=== PATIENT | male | born 1970 | race Caucasian/White ===

== ENCOUNTER 2017-12-16 13:40 | Emergency (ER) | payer OTHER, SELFPAY ==
--- OUTSIDE RECORDS SUMMARY | 2017-12-16 13:43 | XMS REPORT | Summary of Care ---
:1970 Author Organization [facility] Address [address] [address]- Encounter HQ Cresencio_raj(FIN) [id number] Date(s): 07/17/17 - 07/17/[address] [address]- [phone] Discharge Disposition: Home or Self Care Attending Physician: Jakob Rincon DO Vital Signs Most recent to oldest [Reference Range]: 1 Height 185.42 cm (07/17/17 2:37 PM) Temperature Oral [96.4-99.1 DegF] 97.1 DegF (07/17/17 2:37 PM) Blood Pressure [90-140/60-90 mmHg] 142/86 mmHg *HI* (07/17/17 2:37 PM) Respiratory Rate [14-20 BRMIN] 16 BRMIN (07/17/17 2:37 PM) Peripheral Pulse Rate [60-100 bpm] 73 bpm (07/17/17 2:37 PM) Weight 114.545 kg (07/17/17 2:37 PM) Body Mass Index 33.32 m2 (07/17/17 2:37 PM) Problem List Condition Effective Dates Status Health Status Informant Hypertension(Confirmed) Active Obesity(Confirmed) Active Allergies, Adverse Reactions, Alerts Substance Reaction Severity Status NKDA Active Medications hydrochlorothiazide-losartan 12.5 mg-50 mg oral tablet 1 tab, PO, Daily, # 90 tab, 1 Refill(s), Pharmacy: [id number] Start Date: 07/17/17 Status: Orderedsildenafil 50 mg oral tablet 50 mg=1 tab, PO, Daily, PRN for erectile dysfunction, # 10 tab, 5 Refill(s), Pharmacy: [id number] Start Date: 07/22/17 Status: Ordered Results No data available for this section Immunizations No data available for this section Procedures Procedure Date Related Diagnosis Body Site Status Tonsillectomy and adenoidectomy Completed Social History Social History Type Response Substance Abuse Use: Past. Exercise Exercise frequency: 5-6 times/week. Exercise type: Weight lifting.1 Alcohol Current, Frequency: 3-5 times per week. Previous treatment: None. Smoking Status Never smoker; Type: Chewing tobacco; Ready to change: No; Concerns about tobacco use in household: No; Exposure to Tobacco Smoke None; Cigarette Smoking Last 365 Days No; Reg Smoking Cessation Counseling Yes entered on: 10/03/17 1baseball,golf, cardio, bike Assessment and Plan No data available for this section
--- OUTSIDE RECORDS SUMMARY | 2017-12-16 13:43 | XMS REPORT | Summary of Care ---
:1970 Author Organization [facility] [address] [address]- Encounter HQ Encntr_alias(FIN) [id number] Date(s): 06/05/17 - 06/05/[address] [address]- [phone] Attending Physician: Jakob Rincon DO Vital Signs No data available for this section Problem List Condition Effective Dates Status Health Status Informant Hypertension(Confirmed) Active Obesity(Confirmed) Active Allergies, Adverse Reactions, Alerts Substance Reaction Severity Status NKDA Active Medications No data available for this section Results No data available for this section Immunizations No data available for this section Procedures Procedure Date Related Diagnosis Body Site Status Tonsillectomy and adenoidectomy Completed Social History Social History Type Response Substance Abuse Use: Past. Exercise Exercise frequency: 5-6 times/week. Exercise type: Weight lifting.1 Alcohol Current, Frequency: 3-5 times per week. Previous treatment: None. Smoking Status Never smoker; Ready to change: No; Concerns about tobacco use in household: No; Exposure to Tobacco Smoke None; Cigarette Smoking Last 365 Days No; Reg Smoking Cessation Counseling No entered on: 03/06/17 1baseball,golf, cardio, bike Assessment and Plan No data available for this section
--- OUTSIDE RECORDS SUMMARY | 2017-12-16 13:43 | XMS REPORT | Summary of Care ---
:1970 Author Organization [facility] Address [address] [address]- Encounter HQ Encntr_alias(FIN) [id number] Date(s): 08/07/17 - 08/08/17 [place] [id number] [address] [address]- [phone] Vital Signs No data available for this [...]
--- OUTSIDE RECORDS SUMMARY | 2017-12-16 13:43 | XMS REPORT | Summary of Care ---
:1970 Author Organization [facility] Address [address] [address]- Encounter HQ Encntr_alias(FIN) [id number] Date(s): 10/08/17 - 10/09/17 [place] [id number] [address] [address]- [phone] Vital Signs No data available for this [...]
--- OUTSIDE RECORDS SUMMARY | 2017-12-16 13:43 | XMS REPORT | Summary of Care ---
:1970 Author Organization [facility] Address [address] [address]- Encounter HQ Encntr_alias(FIN) [id number] Date(s): 10/14/17 - 10/15/[address] [address]- [phone] Vital Signs No data available for this [...]
--- OUTSIDE RECORDS SUMMARY | 2017-12-16 13:43 | XMS REPORT | Summary of Care ---
:1970 Author Organization [facility] Address [address] [place] [address]- Encounter HQ Jadntr_raj(FIN) [id number] Date(s): 10/03/17 - 10/03/[address] [address]- [phone] Discharge Disposition: Home or Self Care Attending Physician: Jakob Rincon DO Vital Signs Most recent to oldest [Reference Range]: 1 Height 185.42 cm (10/03/17 3:21 PM) Temperature Oral [96.4-99.1 DegF] 98.0 DegF (10/03/17 3:21 PM) Blood Pressure [90-140/60-90 mmHg] 165/86 mmHg *HI* (10/03/17 3:21 PM) Respiratory Rate [14-20 BRMIN] 18 BRMIN (10/03/17 3:21 PM) Peripheral Pulse Rate [60-100 bpm] 64 bpm (10/03/17 3:21 PM) Weight 111.818 kg (10/03/17 3:21 PM) Body Mass Index 32.52 m2 (10/03/17 3:21 PM) Problem List Condition Effective Dates Status Health Status Informant Hypertension(Confirmed) Active Obesity(Confirmed) Active Allergies, Adverse Reactions, Alerts Substance Reaction Severity Status NKDA Active Medications ipratropium nasal 0.06% spray 2 spray, Each Affected Nostril, TID, X 7 day, # 15 mL, 0 Refill(s), Pharmacy: [id number] Start Date: 10/03/17 Stop Date: 10/10/17 Status: Ordered Results No data available for [...]
--- OUTSIDE RECORDS SUMMARY | 2017-12-16 13:43 | XMS REPORT | Summary of Care ---
:1970 Author Organization [facility] [place] Address [address] [place] [address]- Encounter HQ Encntr_alias(FIN) [id number] Date(s): 03/12/17 - 03/12/17 [facility] [address] [place] [address]- [phone] Discharge Disposition: Home or Self Care Attending Physician: Danie Reinoso MD Vital Signs No data available for this section Problem List Condition Effective Dates Status Health Status Informant Hypertension(Confirmed) Active Obesity(Confirmed) Active Allergies, Adverse Reactions, Alerts Substance Reaction Severity Status NKDA Active Medications No data available for this section Results No data available for this section Immunizations No data available for this section Procedures Procedure Date Related Diagnosis Body Site Tonsillectomy and adenoidectomy Social History Social History Type Response Substance Abuse Use: Past. Exercise Exercise frequency: 5-6 times/week. Exercise type: Weight lifting.1 Alcohol Current, Frequency: 3-5 times per week. Previous treatment: None. Smoking Status Never smoker; Ready to change: No; Concerns about tobacco use in household: No; Exposure to Tobacco Smoke None; Cigarette Smoking Last 365 Days No; Reg Smoking Cessation Counseling No 1baseball,golf, cardio, bike Assessment and Plan No data available for this section
--- OUTSIDE RECORDS SUMMARY | 2017-12-16 13:43 | XMS REPORT | Summary of Care ---
:1970 Author Organization [facility] Address [address] [place] [address]- Encounter HQ Jadntr_raj(FIN) [id number] Date(s): 10/03/17 - 10/03/[address] [address]- [phone] Discharge Disposition: Home or Self Care Attending [...] day, # 15 mL, 0 Refill(s), Pharmacy: [id number] Start Date: 10/03/17 Stop Date: 10/10/17 Status: [...]
--- OUTSIDE RECORDS SUMMARY | 2017-12-16 13:43 | XMS REPORT | Continuity of Care Document ---
:1970 Author Organization Interface Problems Problem Status Onset Classification Date Comments Source Date Reported SHOULDER PAIN Active [facility] 7 [place] M25.522 - PAIN Active [facility] IN LEFT ELBOW 7 [place] R07.9 - "CHEST Active [facility], 7 [facility] UNSPECIFIED" R07.9 - "CHEST Active [facility], [facility] [place] UNSPECIFIED" R10.30 Hypertension Active Problem 10/19/2017 [facility] [place] Obesity Active Problem 10/19/2017 [facility] [place] Hypertension Active Problem 11/14/2017 [facility] [place] Obesity Active Problem 11/14/2017 [facility] [place] Hypertension Active Problem 04/27/2017 [facility] [place] [place] Obesity Active Problem 04/27/2017 [facility] [place] [place] Medications Medication Details Route Status Patient Ordering Order Source Instructions Provider Date Ipratropium [place] 2 spray, Active 0.042 MG/ACTUAT Each 018 Medical Metered Dose Nasal Affected Group [facility] [place] Nostril, TID, X 7 day, # 15 mL, 0 Refill(s), [facility] sildenafil 50 MG Oral 50 mg=1 Active Tablet tab, PO, 018 Medical Daily, PRN Group for erectile dysfunctio n, # 10 tab, 5 Refill(s), Pharmacy: [facility] Hydrochlorothiazide 1 tab, PO, Active 12.5 MG / Losartan Daily, # 018 Medical Potassium 50 MG Oral 90 tab, 1 Group Tablet Refill(s), Pharmacy: [facility] Allergies, Adverse Reactions, Alerts Substance Category Reaction Severity Reaction Status Date Comments Source type Reported NKDA Assertion Drug Active allergy Medical Group Immunizations Immunization Date Given Site Status Last Updated Comments Source Results Order Results Value Reference Date Interpretation Comments Source Name Range Elbow 3 Elbow 3 Clinical Indication: - M25.522 Pain in left elbow; - [facility] views views DX - [facility] DX Comparison: None Read by: Arie [place] MD Dictated Date/time: 03/12/17 12:19 FINDINGS: Electronically Signed by: Arie [place] MD 03/12/17 12:19 FINAL REPORT AP,, and lateral radiographs of the left elbow were obtained. No acute fracture or dislocation is identified. Normal configuration of the anterior fat pad is noted. No posterior fat pad is identified. IMPRESSION: 1. No fracture or dislocation of the left elbow. SL: [id number] Chest 2 Chest 2 EXAM: Chest 2 views DX 01/24 - [facility] views views - [facility] DX HISTORY: chest pain - pain COMPARISON: None Read by: Ronnie Patel MD Dictated Date/time: 01/24/17 10:37 Electronically Signed by: Ronnie Patel MD 01/24/17 10:37 FINAL REPORT The heart size is normal and the lungs are clear. There is no pleural effusion or pneumothorax. No acute skeletal abnormality. IMPRESSION: No acute abnormality. Vital Signs Vital Sign Value Date Comments Source Weight 111.818 10/03/2017 Medical Group BMI Calculated 32.52 10/03/2017 [facility] Systolic (mm Hg) 165 10/03/2017 [facility] Diastolic (mm Hg) 86 10/03/2017 [facility] Respitory Rate 18 10/03/2017 [facility] Temperature Oral (F) 98.0 F 10/03/2017 [facility] Heart Rate 64 10/03/2017 Medical Group Height 185.42 cm 10/03/2017 Medical Group Weight 114.545 08/06/2017 [facility] Group BMI Calculated 33.32 08/06/2017 Medical Group Height 185.42 cm 08/06/2017 [facility] Systolic (mm Hg) 157 08/06/2017 [facility] Diastolic (mm Hg) 97 08/06/2017 Medical Group BMI Calculated 33.32 07/17/2017 Medical Group Weight 114.545 07/17/2017 Medical Group Height 185.42 cm 07/17/2017 [facility] Group Temperature Oral (F) 97.1 F 07/17/2017 Medical Group Heart Rate 73 07/17/2017 Medical Group Respitory Rate 16 07/17/2017 [facility] Systolic (mm Hg) 142 07/17/2017 [facility] Diastolic (mm Hg) 86 07/17/2017 Medical Group Encounters Location Location Encounter Encounter Reason Attending ADM DC Status Source Details Type Number For Provider Date Date Visit Outpatient [id number] KELLY HAND 10/24 [facility] [place] [facility] [id number] KELLY HAND 01/24 [facility] Outpt Diag [id number] Kelly Hand 01/24 01/25 [facility]2016 [facility] [id number] KELLY HAND 03/06 [facility] Outpt Diag [id number] [facility] 03/12 03/13 OP Outpatient Services [facility] [place] [facility] [id number] [place] 03/21 [facility] [place] [facility] [place] [facility] [id number] [facility] 03/26 04/25 [facility] [place] [facility] [id number] KELLY HAND 04/22 [facility] [id number] Kelly Hand 04/22 04/22 Primary Pre-Reg /2016 [facility] Outpatient [id number] ED[place] 04/25 [place] [facility] [id number] Ed04/25 [facility] Pre-Reg [place] /2016 Neuro y [place] [facility] [id number] KELLY HAND 06/05 [facility] [id number] Kelly Hand 06/05 06/05 Primary Pre-Reg /2017 [facility] Outpatient [id number] KELLY HAND 07/17 [facility] [id number] Kelly Hand 07/17 07/18 Primary /2017 [facility] Group [facility] Outpatient [id number] TITO AMADO 08/06 [facility] [id number] Tito Amado 08/06 08/07 Urology /2017 [facility] [place] [facility] MG Phone [id number] 08/07 08/09 Primary Message /2017 [facility] Care [facility] Outpatient [id number] KELLY HAND 10/03 Active [facility] /2017 [place] [facility] [id number] Kelly Hand 10/03 10/04 [facility] /[facility] [id number] 10/08 10/10 Primary Message /2017 [facility] [id number] 10/14 10/16 Primary Message /2017 Medical Care [facility] Outpatient [id number] [place] 10/16 [facility] /2017 [place] [facility] [id number] [facility] 10/16 10/16 [facility] Pre-Reg Kemar /2017 Neuro [place] Procedures Procedure Code Date Perfomer Comments Source Tonsillectomy and 10884306 [facility] [place] [facility] Tonsillectomy and [id number] Medical adenoidectomy Group Tonsillectomy and [id number] [facility] adenoidectomy [facility] Tonsillectomy and [id number] [facility] [place] adenoidectomy
--- OUTSIDE RECORDS SUMMARY | 2017-12-16 13:43 | XMS REPORT | Summary of Care ---
:1970 Author Organization [facility] [address] [address]- Encounter HQ Encntr_alias(FIN) [id number] Date(s): 06/05/17 - 06/05/[address] [address]- [phone] Attending Physician: Jakob Rincon DO Vital Signs [...] Reg Smoking Cessation Counseling Yes entered on: 08/06/17 1baseball,golf, cardio, bike Assessment and Plan No data available for this section
--- OUTSIDE RECORDS SUMMARY | 2017-12-16 13:43 | XMS REPORT | Summary of Care ---
:1970 Author Organization [facility] [place] Address [address] [place] [address]- Encounter HQ Encntr_alimichael(FIN) [id number] Date(s): 04/25/17 - 04/25/17 [facility] [place] [address] [place] [address] [phone] Attending Physician: Shree Nash DO Referring Physician: Danie Reinoso MD Vital Signs No [...]
--- OUTSIDE RECORDS SUMMARY | 2017-12-16 13:43 | XMS REPORT | Summary of Care ---
:1970 Author Organization [facility] [place] Address [address] [place] [address]- Encounter HQ Jadntr_raj(FIN) [id number] Date(s): 03/26/17 - 04/24/17 [facility] [place] [address] [place] [phone] Discharge Disposition: Home or Self Care Attending [...]
--- OUTSIDE RECORDS SUMMARY | 2017-12-16 13:43 | XMS REPORT | Summary of Care ---
:1970 Author Organization [facility] [address] [address]- Encounter HQ Encntr_raj(FIN) [id number] Date(s): 04/22/17 - 04/22/[address] [address]- [phone] Attending Physician: Jakob Rincon DO Vital Signs [...]
--- OUTSIDE RECORDS SUMMARY | 2017-12-16 13:43 | XMS REPORT | Summary of Care ---
:1970 Author Organization [facility] Address [address] [address]- Encounter HQ Encntr_alias(FIN) [id number] Date(s): 01/24/17 - 01/24/17 [facility] [address] [id number]- [phone] Discharge Disposition: Home or Self Care Attending [...]
--- OUTSIDE RECORDS SUMMARY | 2017-12-16 13:43 | XMS REPORT | Summary of Care ---
:1970 Author Organization [facility] [place] Address [address] [place] [place] [address]- Encounter HQ Cresencio_raj(STEVEN) [id number] Date(s): 08/06/17 - 08/06/17 [facility] [place] [address] [place] [address] [phone] Discharge Disposition: Home or Self Care Attending Physician: Tito Amado MD Referring Physician: Tito Amado MD Vital Signs Most recent to oldest [Reference Range]: 1 Height 185.42 cm (08/06/17 2:32 PM) Blood Pressure [90-140/60-90 mmHg] 157/97 mmHg *HI* (08/06/17 2:32 PM) Weight 114.545 kg (08/06/17 2:32 PM) Body Mass Index 33.32 m2 (08/06/17 2:32 PM) Problem List Condition Effective Dates Status Health Status Informant Hypertension(Confirmed) Active Obesity(Confirmed) Active Allergies, Adverse Reactions, Alerts Substance Reaction Severity Status NKDA Active Medications No Known Medications Results No data available for this section [...]
[2017-12-16] MEDS ORDERED: ACETAMINOPHEN 500 MG TAB ONE (14:46)
[2017-12-16] MEDS ORDERED: AZITHROMYCIN 500 MG/250 ML BAG ONE (14:47)
[2017-12-16] MEDS ORDERED: NA CHLORIDE 0.9% 1,000 ML ONE ×2 (14:47→16:38)
[2017-12-16] MEDS ORDERED: CEFTRIAXONE/SWI 1gm 1 GM/10 ML SYR ONE ×2 (14:47→15:13)
[2017-12-16 15:11] LABS: Absolute Lymphocytes (CBC) 1.2 K/uL (0.7-4.9); Absolute Monocytes 0.6 K/uL (0.1-1.3); Absolute Neutrophil 3.1 K/uL (1.8-8.0); Basophils % 0.8 % (0-1.3); Eosinophils % 0.6 % (0-4.4); Hematocrit 48.2 % (39.6-49.0); Lymphocytes % 23.8 % (15.3-44.8); MCH 31.5 pg (27.0-35.0); MPV 8.4 fL (7.6-11.3); Monocytes % 12.1 % (3.3-12.3); RBC Red Blood Cell Count 5.23 M/uL (4.33-5.43)
--- NOTE | 2017-12-16 15:25 | EKG ---
Test Date: 2017-12-16 Test Time: 15:02:59 Edge Inker: ALYCIA MEASUREMENT RESULTS: Intervals: Rate: 102 DC: 130 QRSD: 76 QT: 336 QTc: 437 [place]: P: 42 DC: 130 QRS: 0 T: 20 INTERPRETIVE STATEMENTS: Sinus tachycardia Otherwise normal ECG No previous ECG available for comparison Electronically Signed On 12-16-17 15:24:48 CDT by Nael Wu
[2017-12-16 15:30] LABS: Protime INR 1.21
[2017-12-16 15:33] LABS: Bilirubin Direct 0.2 mg/dL (0-0.2); Bilirubin Total 0.7 mg/dL (0.2-1.0); CKMB Creatine Kinase MB 4.5 ng/mL (0.3-3.6); Magnesium 2.5 mg/dL (1.8-2.4); Protein, Total 8.4 g/dL (6.4-8.2)
--- NOTE | 2017-12-16 16:04 | RAD REPORT ---
EXAM DESCRIPTION: CT - Chest For Pe Angio - 12/16/2017 3:55 pm CLINICAL HISTORY: Cough and congestion. Shortness of breath COMPARISON: December 16 chest x-ray TECHNIQUE: Dynamically enhanced axial 3 mm thick images of the chest were obtained during administra tion of <100> mL Isovue 370 IV contrast. Coronal and oblique reconstruction images were generated and reviewed. Exam utilizes a protocol for optimal evaluation of pulmonary arterial tree. Maximum intensity projections 3D imaging was utilized All CT scans are performed using dose optimization technique as appropriate and may include automated exposure control or mA/KV adjustment according to patient size. FINDINGS: The opacification of the pulmonary arteries is suboptimal. A gross central pulmonary embol us is not seen. A thoracic aortic aneurysm is not noted. A pleural effusion is not seen. A pericardial effusion is not seen. Moderate alveolar opacities are present within the left upper lobe/ lingula. Fatty infiltration liver is present. IMPRESSION: Suboptimal opacification of the pulmonary arteries without gross visualization of a cent ral pulmonary embolus Moderate left pneumonia
--- NOTE | 2017-12-16 16:11 | EDPHYS ---
Physician Documentation [facility] Name: Alessio Craig Age: 47 yrs Sex: Male : 1970 Arrival Date: 12/16/2017 Time: 13:40 Bed 7 Private MD: Out, [facility] ED Physician Wagner Mcnamara HPI: 12/16 15:03 This 47 yrs old Male presents to ER via Ambulatory with complaints of sent by naseem Pascal. 15:03 The patient has shortness of breath at rest, with light activity. Onset: The naseem symptoms/episode began/occurred 3 day(s) ago. Duration: The symptoms are continuous, and are steadily getting worse. The patient's shortness of breath has no apparent modifying factors. The patient or guardian reports cough, difficulty breathing, flu symptoms. Modifying factors: The symptoms are alleviated by nothing. the symptoms are aggravated by nothing. Associated signs and symptoms: Pertinent positives: productive cough, fever. Severity of symptoms: At their worst the symptoms were moderate in the emergency department the symptoms are unchanged. Historical: - Allergies: 14:09 No Known Allergies; ss - Home Meds: 14:09 z-latrell [Active]; ss - PMHx: 14:09 None; ss - PSHx: 14:09 None; ss - Immunization history:: Adult Immunizations up to date. - Social history:: Smoking status: Patient/guardian denies using tobacco. - Ebola Screening: : Patient denies exposure to infectious person Patient denies travel to an Ebola-affected area in the 21 days before illness onset. - Family history:: not pertinent. ROS: 15:03 Eyes: Negative for injury, pain, redness, and discharge, ENT: Negative for injury, naseem pain, and discharge, Neck: Negative for injury, pain, and swelling, Cardiovascular: Negative for chest pain, palpitations, and edema, Abdomen/GI: Negative for abdominal pain, nausea, vomiting, diarrhea, and constipation, Back: Negative for injury and pain, : Negative for injury, bleeding, discharge, and swelling, MS/Extremity: Negative for injury and deformity, Skin: Negative for injury, rash, and discoloration, Psych: Negative for depression, anxiety, suicide ideation, homicidal ideation, and hallucinations, Allergy/Immunology: Negative for hives, rash, and allergies, Endocrine: Negative for neck swelling, polydipsia, polyuria, polyphagia, and marked weight changes, Hematologic/Lymphatic: Negative for swollen nodes, abnormal bleeding, and unusual bruising. 15:03 Constitutional: Positive for fever. 15:03 Respiratory: Positive for cough, "sounds productive". 15:03 Respiratory: Positive for shortness of breath, at rest. 15:03 Abdomen/GI: 15:03 Neuro: Positive for weakness. Exam: 15:03 Constitutional: This is a well developed, well nourished patient who is awake, alert, naseem and in no acute distress. Head/Face: Normocephalic, atraumatic. Eyes: Pupils equal round and reactive to light, extra-ocular motions intact. Lids and lashes normal. Conjunctiva and sclera are non-icteric and not injected. Cornea within normal limits. Periorbital areas with no swelling, redness, or edema. ENT: Nares patent. No nasal discharge, no septal abnormalities noted. Tympanic membranes are normal and external auditory canals are clear. Oropharynx with no redness, swelling, or masses, exudates, or evidence of obstruction, uvula midline. Mucous membranes moist. Neck: Trachea midline, no thyromegaly or masses palpated, and no cervical lymphadenopathy. Supple, full range of motion without nuchal rigidity, or vertebral point tenderness. No Meningismus. Chest/axilla: Normal chest wall appearance and motion. Nontender with no deformity. No lesions are appreciated. Cardiovascular: Regular rate and rhythm with a normal S1 and S2. No gallops, murmurs, or rubs. Normal PMI, no JVD. No pulse deficits. Abdomen/GI: Soft, non-tender, with normal bowel sounds. No distension or tympany. No guarding or rebound. No evidence of tenderness throughout. Back: No spinal tenderness. No costovertebral tenderness. Full range of motion. Male : Normal genitalia with no discharge or lesions. Skin: Warm, dry with normal turgor. Normal color with no rashes, no lesions, and no evidence of cellulitis. MS/ Extremity: Pulses equal, no cyanosis. Neurovascular intact. Full, normal range of motion. Neuro: Awake and alert, GCS 15, oriented to person, place, time, and situation. Cranial nerves II-XII grossly intact. Motor strength 5/5 in all extremities. Sensory grossly intact. Cerebellar exam normal. Normal gait. Psych: Awake, alert, with orientation to person, place and time. Behavior, mood, and affect are within normal limits. 15:03 Respiratory: Respirations: labored breathing, that is mild, Breath sounds: decreased breath sounds, rhonchi, that are mild, that are moderate, Respiratory rate: 18 Vital Signs: 14:09 BP 165 / 91; Pulse 104; Resp 18; Pulse Ox 98% on R/A; Weight 108.86 kg; Height 6 ft. 2 ss in. (187.96 cm); Pain 7/10; 14:09 Temp 101.6(TE); ss 14:25 Temp 100.4(O); tw2 15:22 BP 192 / 99; Pulse 99; Resp 18; Pulse Ox 95% on R/A; tw2 16:52 Temp 99.7(O); tw2 16:52 Temp 99.7(O); tw2 16:56 BP 148 / 88; Pulse 93; Resp 17; Pulse Ox 97% on R/A; tw2 17:28 BP 158 / 97; Pulse 89; Resp 17; Pulse Ox 98% on R/A; tw2 14:09 Body Mass Index 30.81 (108.86 kg, 187.96 cm) MDM: 14:34 Patient medically screened. [facility] 15:03 Immunization status:. Data reviewed: vital signs, nurses notes, lab test result(s), [facility] EKG, radiologic studies, CT scan, plain films. 12/16 14:37 Order name: Basic Metabolic Panel; Complete Time: 15:41 [facility] 12/16 14:37 Order name: CBC with Diff; Complete Time: 15:41 [facility] 12/16 14:37 Order name: Ckmb; Complete Time: 15:41 [facility] 12/16 14:37 Order name: CPK; Complete Time: 15:41 [facility] 12/16 14:37 Order name: LFT's; Complete Time: 15:41 [facility] 12/16 14:37 Order name: Magnesium; Complete Time: 15:41 [facility] 12/16 14:37 Order name: NT PRO-BNP; Complete Time: 15:41 [facility] 12/16 14:37 Order name: PT-INR; Complete Time: 15:41 [facility] 12/16 14:37 Order name: Ptt, Activated; Complete Time: 15:41 [facility] 12/16 14:37 Order name: Troponin (emerg Dept Use Only); Complete Time: 15:41 [facility] 12/16 14:37 Order name: Blood Culture Adult (2) [facility] 12/16 14:37 Order name: Lactate; Complete Time: 15:41 [facility] 12/16 14:37 Order name: Procalcitonin; Complete Time: 16:06 [facility] 12/16 14:37 Order name: Influenza Screen (a \\T\\ B); Complete Time: 15:41 [facility] 12/16 14:37 Order name: EKG; Complete Time: 14:38 [facility] 12/16 14:37 Order name: Cardiac monitoring; Complete Time: 17:01 [facility] 12/16 14:37 Order name: CT Chest For PE Angio; Complete Time: 17:01 [facility] 12/16 14:37 Order name: Urine Culture [facility] 12/16 16:32 Order name: BMP 12/16 16:54 Order name: Urine Dipstick--Ancillary (enter results) 12/16 17:05 Order name: Urine Dipstick-Ancillary [facility] 12/16 17:11 Order name: Basic Metabolic Panel [facility] 12/16 14:37 Order name: EKG - Nurse/Tech; Complete Time: 17:01 [facility] 12/16 14:37 Order name: IV Saline Lock; Complete Time: 17:01 [facility] 12/16 14:37 Order name: Labs collected and sent; Complete Time: 17:00 [facility] 12/16 14:37 Order name: O2 Per Protocol; Complete Time: 17:00 [facility] 12/16 14:37 Order name: O2 Sat Monitoring; Complete Time: 17:00 [facility] 12/16 14:37 Order name: Urine Dipstick-Ancillary (obtain specimen); Complete Time: 17:00 [facility] Administered Medications: 15:00 Drug: NS 0.9% 1000 ml Route: IV; Rate: 1 bolus; Site: left antecubital; tw2 16:00 Follow up: IV Status: Completed infusion; IV Intake: 1000ml tw2 15:10 Drug: Rocephin - (cefTRIAXone) 1 grams {Note: IVP available only, provider aware.} tw2 Route: IVPB; Infused Over: 5 mins; Site: left antecubital; 15:15 Follow up: Response: No adverse reaction; IV Status: Completed infusion tw2 15:14 Drug: Zithromax 500 mg Route: IVPB; Infused Over: 1 hrs; Site: left antecubital; tw2 16:00 Follow up: Response: No adverse reaction; IV Status: Completed infusion tw2 15:14 Drug: Tylenol 1000 mg Route: PO; tw2 15:45 Follow up: Response: No adverse reaction tw2 16:52 Follow up: Temp 99.7 Oral; Response: Temperature is decreased tw2 15:15 Drug: Rocephin - (cefTRIAXone) 1 grams Route: IVPB; Infused Over: 5 mins; Site: left tw2 antecubital; 15:45 Follow up: IV Status: Completed infusion tw2 16:32 Not Given (per Dr. Arevalo): levofloxacin 750 mg 150 ml IVPB once over 90 mins ss 16:45 Drug: NS 0.9% 1000 ml Route: IV; Rate: 1000 ml; Site: left antecubital; tw2 17:42 Follow up: IV Status: Completed infusion; IV Intake: 1000ml tw2 Disposition: 12/16/17 16:55 Discharged to Home. Impression: Pneumonia due to other infectious organisms, not elsewhere classified. - Condition is Stable. - Discharge Instructions: Community-Acquired Pneumonia, Adult, Viral Respiratory Infection. - Prescriptions for Levaquin 500 mg Oral Tablet - take 1 tablet by ORAL route once daily for 10 days; 10 tablet. - Work release form, Medication Reconciliation Form, Thank You Letter, Antibiotic Education, Prescription Opioid Use form. - Follow up: Private Physician; When: 48 Hours; Reason: Recheck today's complaints. - Problem is new. - Symptoms are resolved. Signatures: Dispatcher [employer] ALEXUSDE Wagner Mcnamara MD MD cha Smirch, Shelby, RN RN ss Wise, Tara, RN RN tw2 Veronica Arevalo MD MD rp3 Corrections: (The following items were deleted from the chart) 14:53 14:38 Chest Single View+RAD.RAD.BRZ ordered. [facility] 16:54 16:10 Hospitalization Ordered by Veronica Arevalo MD for Observation. Preliminary rp3 diagnosis is Pneumonia due to other specified bacteria; Fever, unspecified; Malaise and fatigue. Bed requested for Telemetry/MedSurg (observation). Status is Observation. Condition is Fair. Problem is new. Symptoms have improved. UTI on Admission? No. naseem 17:49 16:55 12/16/2017 16:55 Discharged to Home. Impression: Pneumonia due to other tw2 infectious organisms, not elsewhere classified. Condition is Stable. Forms are Medication Reconciliation Form, Thank You Letter, Antibiotic Education, Prescription Opioid Use. Follow up: Private Physician; When: 48 Hours; Reason: Recheck today's complaints. Problem is new. Symptoms are resolved. rp3
--- NOTE | 2017-12-16 16:11 | ER ---
Nurse's Notes [facility] Name: Alessio Craig Age: 47 yrs Sex: Male : 1970 Arrival Date: 12/16/2017 Time: 13:40 Bed 7 Private MD: Out, [facility] Diagnosis: Pneumonia due to other infectious organisms, not elsewhere classified Presentation: 12/16 14:06 Presenting complaint: Patient states: fever and flu like symptoms that began 3 days ss ago. Pt was seen at urgent care, had XRAY obtained and was called and told to come to ER to have emergent CT. Transition of care: patient was not received from another setting of care. Onset of symptoms was December 12, 2017. Risk Assessment: Do you want to hurt yourself or someone else? Patient reports no desire to harm self or others. Initial Sepsis Screen: Does the patient meet any 2 criteria? No. Patient's initial sepsis screen is negative. Does the patient have a suspected source of infection? No. Patient's initial sepsis screen is negative. Care prior to arrival: None. 14:06 Method Of Arrival: Ambulatory ss 14:06 Acuity: KENYATTA 3 ss Historical: - Allergies: 14:09 No Known Allergies; ss - Home Meds: 14:09 z-latrell [Active]; ss - PMHx: 14:09 None; ss - PSHx: 14:09 None; ss - Immunization history:: Adult Immunizations up to date. - Social history:: Smoking status: Patient/guardian denies using tobacco. - Ebola Screening: : Patient denies exposure to infectious person Patient denies travel to an Ebola-affected area in the 21 days before illness onset. - Family history:: not pertinent. Screenin:25 Abuse screen: Denies threats or abuse. Nutritional screening: No deficits noted. tw2 Tuberculosis screening: No symptoms or risk factors identified. Fall Risk None identified. Assessment: 13:45 Reassessment: overheard patient speaking loudly to registration staff and seemed upset. ss Pt reports that he was sent over by urgent care for a Chest XRAY, was then called back after report was read to come back for emergent CT scan. Pt did not understand why he needed to sign in as ER patient was was requesting to speak directly to radiologist that had sent him over. Patient is refusing triage at this time. Shena Michael, housekeeping aide called and states she will be down momentarily. 14:22 General: Appears in no apparent distress. Behavior is agitated. Pain: Complains of pain tw2 in "all over i ache". Neuro: Level of Consciousness is awake, alert, obeys commands, Oriented to person, place, time, situation. Cardiovascular: Denies chest pain, shortness of breath, Heart tones S1 S2 Capillary refill < 3 seconds Patient's skin is warm and dry. Respiratory: Airway is patent Respiratory effort is even, unlabored, Respiratory pattern is regular, symmetrical, Breath sounds are clear bilaterally. GI: No signs and/or symptoms were reported involving the gastrointestinal system. Abdomen is round non-distended, Bowel sounds present X 4 quads. : No signs and/or symptoms were reported regarding the genitourinary system. EENT: Reports nasal congestion nasal discharge. Derm: Skin is diaphoretic. Musculoskeletal: Range of motion: intact in all extremities. 15:22 Reassessment: Patient appears in no apparent distress at this time. No changes from tw2 previously documented assessment. Patient and/or family updated on plan of care and expected duration. Pain level reassessed. Patient is alert, oriented x 3, equal unlabored respirations, skin warm/dry/pink. 16:57 Reassessment: Patient appears in no apparent distress at this time. No changes from tw2 previously documented assessment. Patient and/or family updated on plan of care and expected duration. Pain level reassessed. Patient is alert, oriented x 3, equal unlabored respirations, skin warm/dry/pink. Dr. Arevalo at bedside, plan to discharge pt from ER with abx, BMP ordered and sent, additional 1L NS ordered and administered per VO 100% RB Dr. Arevalo. 17:48 Reassessment: Patient appears in no apparent distress at this time. No changes from tw2 previously documented assessment. Patient and/or family updated on plan of care and expected duration. Pain level reassessed. Patient is alert, oriented x 3, equal unlabored respirations, skin warm/dry/pink. Patient states feeling better. Patient states symptoms have improved. Vital Signs: 14:09 BP 165 / 91; Pulse 104; Resp 18; Pulse Ox 98% on R/A; Weight 108.86 kg; Height 6 ft. 2 ss in. (187.96 cm); Pain 7/10; 14:09 Temp 101.6(TE); ss 14:25 Temp 100.4(O); tw2 15:22 BP 192 / 99; Pulse 99; Resp 18; Pulse Ox 95% on R/A; tw2 16:52 Temp 99.7(O); tw2 16:52 Temp 99.7(O); tw2 16:56 BP 148 / 88; Pulse 93; Resp 17; Pulse Ox 97% on R/A; tw2 17:28 BP 158 / 97; Pulse 89; Resp 17; Pulse Ox 98% on R/A; tw2 14:09 Body Mass Index 30.81 (108.86 kg, 187.96 cm) ED Course: 13:40 Patient arrived in ED. sb2 13:42 Out, of Town is Private Physician. sb2 14:08 Triage completed. ss 14:09 Arm band placed on right wrist. ss 14:10 Bed in low position. Call light in reach. residential monitor on. Pulse ox on. NIBP on. tw2 14:22 Missed attempt(s): 20 gauge in right antecubital area. per Luis Enrique Michael RN. Bleeding tw2 controlled, band aid applied, catheter tip intact. 14:34 Wagner Mcnamara MD is Attending Physician. naseem 14:38 Letitia De, IDALMIS is Primary Nurse. tw2 14:40 Radiology exam delayed due to lab results not completed at this time. (BUN/Creatinine). cw1 14:55 No provider procedures requiring assistance completed. Inserted saline lock: 20 gauge tw2 in left antecubital area, using aseptic technique. Blood collected. 15:08 Radiology exam delayed due to lab results not completed at this time. (BUN/Creatinine). vm2 15:20 EKG done, by network technology instructor. reviewed by Wagner Mcnamara MD. sm3 15:[address] vm2 15:54 CT completed. Patient moved back from CT. vm2 15:55 CT Chest For PE Angio In Process Unspecified. EDMS 16:09 Veronica Arevalo MD is Hospitalizing Provider. naseem 16:56 Veronica Arevalo MD mold construction supervisor. rp3 16:58 Awaiting: completion of IV fluids and abx PRIOR to discharge per Dr. Arevalo. tw2 17:41 IV discontinued, intact, bleeding controlled, No redness/swelling at site. Pressure tw2 dressing applied. Administered Medications: 15:00 Drug: NS 0.9% 1000 ml Route: IV; Rate: 1 bolus; Site: left antecubital; tw2 16:00 Follow up: IV Status: Completed infusion; IV Intake: 1000ml tw2 15:10 Drug: Rocephin - (cefTRIAXone) 1 grams {Note: IVP available only, provider aware.} tw2 Route: IVPB; Infused Over: 5 mins; Site: left antecubital; 15:15 Follow up: Response: No adverse reaction; IV Status: Completed infusion tw2 15:14 Drug: Zithromax 500 mg Route: IVPB; Infused Over: 1 hrs; Site: left antecubital; tw2 16:00 Follow up: Response: No adverse reaction; IV Status: Completed infusion tw2 15:14 Drug: Tylenol 1000 mg Route: PO; tw2 15:45 Follow up: Response: No adverse reaction tw2 16:52 Follow up: Temp 99.7 Oral; Response: Temperature is decreased tw2 15:15 Drug: Rocephin - (cefTRIAXone) 1 grams Route: IVPB; Infused Over: 5 mins; Site: left tw2 antecubital; 15:45 Follow up: IV Status: Completed infusion tw2 16:32 Not Given (per Dr. Arevalo): levofloxacin 750 mg 150 ml IVPB once over 90 mins 16:45 Drug: NS 0.9% 1000 ml Route: IV; Rate: 1000 ml; Site: left antecubital; tw2 17:42 Follow up: IV Status: Completed infusion; IV Intake: 1000ml tw2 Intake: 16:00 IV: 1000ml; Total: 1000ml. tw2 17:42 IV: 1000ml; Total: 2000ml. tw2 Outcome: 16:10 Decision to Hospitalize by Provider. naseem 16:55 Discharge ordered by . rp3 17:48 Discharged to home ambulatory. tw2 17:48 Condition: stable 17:48 Discharge instructions given to patient, Instructed on discharge instructions, follow up and referral plans. medication usage, Demonstrated understanding of medications, Prescriptions given X 1. 17:49 Patient left the ED. tw2 Signatures: Dispatcher [employer] EDWY Wagner Mcnamara MD MD cha Smirch, Shelby, RN RN Sandra Beckett cw1 Letitia De RN RN tw2 Claudia Noland 2 Veronica Arevalo MD MD rp3 Vannessa Estrada 2 Kelly Dela Cruz sm3 Corrections: (The following items were deleted from the chart) 17:11 17:01 Pulse 105bpm; Resp 18bpm; Pulse Ox 100% 2 lpm; tw2 tw2 17:41 17:28 BP 155 / 90; Pulse 89bpm; Resp 17bpm; Pulse Ox 98% RA; tw2 tw2 17:48 17:48 Reassessment: Patient appears in no apparent distress at this time. No changes tw2 from previously documented assessment. Patient and/or family updated on plan of care and expected duration. Pain level reassessed. Patient is alert, oriented x 3, equal unlabored respirations, skin warm/dry/pink. tw2
[2017-12-16 17:04] LABS: Urine Blood TRACE (NEG); Urine Glucose NEGATIVE (NEG); Urine Protein NEGATIVE (NEG); Urine Specific Gravity <1.005 (1.005-1.030)
--- NOTE | 2017-12-16 18:11 | P.CNS ---
Reason for Consult: PNA Requesting Physician: Wagner Mcnamara Primary Care Provider: In [facility] Chief Complaint: Viral Illness History of Present Illness: This is a 47-year-old male with no significant past medical history who stated that he started having some fever chills coughing and congestion for past 3 days along with body aches and thus he decided to go to the urgent care today. At the urgent care patient had an x-ray done which was concerning for pneumonia and possible septic emboli. Patient then was transferred over to the hospital for further workup. Here in the hospital patient had a CT angiogram which was negative for septic emboli or pulmonary embolism however was concerning for moderate pneumonia on the left lower lobe. Patient stated that he had a fever at the house however he did not measure it at all. No other associated symptoms at this time. Patient denies having any chest pain shortness of breath nausea vomiting or any other complaints. Allergies No Known Allergies Allergy (Unverified 12/16/17 17:53) Review of Systems General: As per HPI Physical Examination General: Alert, In no apparent distress HEENT: Atraumatic, PERRLA, Mucous membr. moist/pink, EOMI, Sclerae nonicteric Neck: Supple, 2+ carotid pulse no bruit, No LAD, Without JVD or thyroid abnormality Respiratory: Clear to auscultation bilaterally, Normal air movement Cardiovascular: Regular rate/rhythm, Normal S1 S2 Gastrointestinal: Normal bowel sounds, No tenderness Musculoskeletal: No tenderness Integumentary: No rashes Neurological: Normal gait, Normal speech, Normal tone, Normal affect Lymphatics: No axilla or inguinal lymphadenopathy Laboratory Data (last 24 hrs) 12/16/17 14:55: PT 14.3 H, INR 1.21, APTT 28.7 12/16/17 14:55: WBC 5.0, Hgb 16.5, Hct 48.2, Plt Count 214 12/16/17 14:55: Sodium 135 L, Potassium 4.0, BUN 9, Creatinine 1.20, Glucose 98 , Magnesium 2.5 H, Total Bilirubin 0.7, AST 46 H, ALT 58, Alkaline Phosphatase 87 - Problems (1) Viral respiratory illness Current Visit: Yes Status: Acute (2) CAP (community acquired pneumonia) Current Visit: Yes Status: Acute Qualifiers: Laterality: left Lung location: lower lobe of lung Qualified Code(s): J18.1 - Lobar pneumonia, unspecified organism Conclusions/Impression: Patient seen and evaluated in the ER. Vital signs were stable. Patient was not having any fever congestion at that point. Patient still continued to have body aches however felt much better than before. Lab work was done which was reviewed. Patient did not have any leukocytosis or any neutrophil elevation. Patient prolactin level was negative. CTA as mentioned before was negative for pulmonary embolism or septic emboli however was concerning for what moderate lower lobe pneumonia. Patient stated that he has been having some plan however is nonproductive in nature at all. Patient's current 65 score is less than 0 this outpatient management of pneumonia is acceptable at this point. Patient's symptoms are most likely consistent with viral illness along with possibility of community-acquired pneumonia. Patient will be given prescription for Levaquin to go home with. Patient also encouraged to take p.o. liquids for electrolyte replacement. Patient demonstrated understanding and agree you will with the plan. Will be following with primary care doctor in about 24 hr. Discharged home under stable condition. Critical Care: No
== END 2017-12-16 17:49 | disposition home or self-care (01) ==
LOC: ER 13:40 → ERHOLD 16:12 → UNDOADMOB 16:12
DX: J16.8 Pneumonia due to other specified infectious organisms (principal)
CPT/HCPCS: 36415; 71275; 80048; 80076; 81003; 82550; 82553; 83605; 83735; 83880; 84145; 84484; 85025; 85610; 85730; 87040; 87086; 87088; 87804; 93005; 96361; 96365; 96368; 99285; J0456; J0696; J7030; Q9967

== ENCOUNTER 2018-10-29 09:02 | Emergency (ER) | payer OTHER, SELFPAY ==
--- OUTSIDE RECORDS SUMMARY | 2018-10-29 09:05 | XMS REPORT | Summary of Care ---
:1970 Author Organization [facility] [address] [address]- Encounter HQ Encntr_alias(FIN) [id number] Date(s): 01/01/18 - 01/02/[address] [address]- [phone] Vital Signs No data available for this [...] Reg Smoking Cessation Counseling Yes entered on: 12/31/17 1baseball,golf, cardio, bike Assessment and Plan No data available for this section
--- OUTSIDE RECORDS SUMMARY | 2018-10-29 09:05 | XMS REPORT | Summary of Care ---
:1970 Author Organization [facility] [address] [address]- Encounter HQ Jadntr_raj(FIN) [id number] Date(s): 09/26/18 - 09/26/[address] [address]- Attending Physician: Milagro Saldana DO Vital Signs No data available for this section Problem List Condition Effective Dates Status Health Status Informant Hypertension(Confirmed) Active Obesity(Confirmed) Active Allergies, Adverse Reactions, Alerts No Known Medication Allergies Medications No data available for this section [...]
--- OUTSIDE RECORDS SUMMARY | 2018-10-29 09:05 | XMS REPORT | Continuity of Care Document ---
:1970 Author Organization Interface Problems Problem Status Onset Classification Date Comments Source Date Reported SHOULDER PAIN Active [facility] 7 [facility] M25.522 - PAIN Active [facility] IN LEFT ELBOW 7 [place] R07.9 - "CHEST Active [facility], 7 [facility] UNSPECIFIED" R07.9 - "CHEST Active [facility] PAIN, 7 [place] UNSPECIFIED" R10.30 Hypertension Active Problem 10/03/2018 [facility] [place] Obesity Active Problem 10/03/2018 [facility] Hypertension Active Problem 04/27/2017 [facility] Obesity Active Problem 04/27/2017 [facility] Hypertension Active Problem 10/19/2017 [facility] Obesity Active Problem 10/19/2017 [facility] [place] Medications Medication Details Route Status Patient Ordering Order Source Instructions Provider Date valACYclovir 1 g oral 1 gm=1 No tablet tab, PO, Longer 018 Medical Daily, X 5 Active Group day, # 5 tab, 4 Refill(s), Pharmacy: [facility] valACYclovir 1 g oral 1 gm=1 No tablet tab, PO, Longer 018 Medical BID, X 7 Active Group day, # 14 tab, 1 Refill(s), Pharmacy: [facility] Ipratropium Gary 2 spray, Active 0.042 MG/ACTUAT Each 018 Medical Metered Dose Nasal Affected Group [place] Nostril, TID, X 7 day, # 15 mL, 0 Refill(s), Pharmacy: [facility] sildenafil 50 MG Oral 50 mg=1 Active Tablet tab, PO, 018 Medical Daily, PRN Group for erectile dysfunctio n, # 10 tab, 5 Refill(s), Pharmacy: [facility] Hydrochlorothiazide 1 tab, PO, Active 12.5 MG / Losartan Daily, # 018 Medical Potassium 50 MG Oral 90 tab, 1 Group Tablet Refill(s), Pharmacy: [facility] Allergies, Adverse Reactions, Alerts Substance Category Reaction Severity Reaction Status Date Comments Source type Reported No Known Assertion Drug Medication allergy Medical Allergies Group Immunizations Immunization Date Given Site Status Last Updated Comments Source Results Order Results Value Reference Date Interpretation Comments Source Name Range Elbow 3 Elbow 3 Clinical Indication: - M25.522 Pain in left elbow; - [facility] views views DX /2016 - [facility] DX Comparison: None Read by: [...] or dislocation of the left elbow. SL: [id number] Chest 2 Chest 2 EXAM: Chest 2 views DX 01/24 - [facility] views views DX - [facility] DX HISTORY: chest pain - pain COMPARISON: None Read by: Ronnie Patel MD Dictated Date/time: 01/24/17 10:37 Electronically Signed by: Ronnie Patel MD 01/24/17 10:37 FINAL REPORT The heart size is normal and the lungs are clear. There is no pleural effusion or pneumothorax. No acute skeletal abnormality. IMPRESSION: No acute abnormality. Vital Signs Vital Sign Value Date Comments Source BMI Calculated 34.24 12/31/2017 [facility] Weight 117.727 12/31/2017 [facility] Temperature Oral (F) 98.4 F 12/31/2017 [facility] Group Respitory Rate 16 12/31/2017 Medical [facility] Heart Rate 86 12/31/2017 Medical [facility] Height 185.42 cm 12/31/2017 Medical Group Systolic (mm Hg) 158 12/31/2017 Medical Group Diastolic (mm Hg) 108 12/31/2017 Medical [facility] BMI Calculated 33.85 12/18/2017 [facility] Weight 116.364 12/18/2017 [facility] Height 185.42 cm 12/18/2017 [facility] Respitory Rate 18 12/18/2017 Medical [facility] Heart Rate 83 12/18/2017 [facility] Systolic (mm Hg) 140 12/18/2017 [facility] Diastolic (mm Hg) 94 12/18/2017 [facility] Temperature Oral (F) 98.5 F 12/18/2017 [facility] Weight 111.818 10/03/2017 [facility] BMI Calculated [...] Number For Provider Date Date Visit Outpatient [id number] KELLY HAND 10/24 Active [facility] [id number] KELLY HAND 01/24 Active [facility] Outpt Diag [id number] Kelly Hand 01/24 01/25 [facility] /2016 [facility] [id number] [facility] 03/06 [facility] [id number] Danie 03/12 03/13 OP Outpatient Services [place] /2016 [facility] [place] [facility] [id number] ED03/21 [facility] Therapy [id number] Danie 03/26 04/25 SMR Patients [place] /2016 [facility] Outpatient [id number] KELLY HAND 04/22 Active [facility] [id number] Kelly Hand 04/22 04/22 MH Primary Pre-Reg /2016 [facility] Outpatient [id number] 04/25 Active [facility] [id number] 04/25 [facility] [place] /2016 Neuro y [place] Outpatient [id number] KELLY HAND 06/05 Active [facility] Ambulatory [id number] Kelly Hand 06/05 06/05 Primary Pre-Reg /2017 Medical Care [facility] Outpatient [id number] KELLY HAND 07/17 Active [facility] Outpatient [id number] Kelly Hand 07/17 07/18 Primary /2017 [facility] Care [facility] Outpatient [id number] TITO AMADO 08/06 Active [facility] Outpatient [id number] Tito Amado 08/06 08/07 Urology /2017 [facility] [place] [facility] Phone [id number] 08/07 08/09 Primary Message /2017 [facility] Care [facility] Outpatient [id number] KELLY HAND 10/03 Active [facility] Outpatient [id number] Kelly Hand 10/03 10/04 Primary /2017 [facility] Care [facility] Phone [id number] 10/08 10/10 [facility] [id number] 10/14 10/16 Primary Message /2017 [facility] Care [facility] Outpatient [id number] CALIN 10/16 Active [facility] [id number] Danie 10/16 10/16 [facility] Pre-Reg [facility] Outpatient [id number] KELLY HAND 12/18 Active [facility] Outpatient [id number] Kelly Hand 12/18 12/19 Primary /2017 [facility] Outpatient [id number] KELLY HAND 12/31 Active [facility] Outpatient [id number] Kelly Hand 12/31 01/01 Primary /2017 [facility] Group [facility] Phone [id number] 01/01 01/03 Primary Message /2017 [facility] Phone [phone] 01/07 01/09 Primary Message /2017 Medical Care [facility] Outpatient [id number] Anira 09/26 Active [facility] Ambulatory [id number] Anira 09/26 09/26 Primary Pre-Reg [place] /2018 [facility] Care [facility] Outpatient [id number] Kelly Hand 10/01 Active [facility] Ambulatory [id number] Kelly Hand 10/01 10/01 Primary Pre-Reg /2018 [facility] Procedures Procedure Code Date Perfomer Comments Source Tonsillectomy and 52359324 [facility] adenoidectomy - [place] Tonsillectomy and 63999013 Medical adenoidectomy Group Tonsillectomy and 41607383 [facility] adenoidectomy Tonsillectomy and [id number] [facility] adenoidectomy Tonsillectomy and 48069126 [facility] adenoidectomy [facility]
--- OUTSIDE RECORDS SUMMARY | 2018-10-29 09:05 | XMS REPORT | Summary of Care ---
:1970 Author Organization [address] [address]- Encounter HQ [email or web address]_raj(FIN) [id number] Date(s): 12/31/17 - 12/31/[address] [address]- [phone] Discharge Disposition: Home or Self Care Attending Physician: Jakob Rincon DO Vital Signs Most recent to oldest [Reference Range]: 1 Height 185.42 cm (12/31/17 10:58 AM) Temperature Oral [96.4-99.1 DegF] 98.4 DegF (12/31/17 10:58 AM) Blood Pressure [90-140/60-90 mmHg] 158/108 mmHg *HI* (12/31/17 10:58 AM) Respiratory Rate [14-20 BRMIN] 16 BRMIN (12/31/17 10:58 AM) Peripheral Pulse Rate [60-100 bpm] 86 bpm (12/31/17 10:58 AM) Weight 117.727 kg (12/31/17 10:58 AM) Body Mass Index 34.24 m2 (12/31/17 10:58 AM) Problem List Condition Effective Dates Status Health Status Informant Hypertension(Confirmed) Active Obesity(Confirmed) Active Allergies, Adverse Reactions, Alerts Substance Reaction Severity Status NKDA Active Medications valACYclovir 1 g oral tablet 1 gm=1 tab, PO, BID, X 7 day, # 14 tab, 1 Refill(s), Pharmacy: [facility] Start Date: 12/31/17 Stop Date: 01/14/18 Status: Completed Results No data available for this section [...]
--- OUTSIDE RECORDS SUMMARY | 2018-10-29 09:05 | XMS REPORT | Summary of Care ---
:1970 Author Organization [facility] Address [address] [address]- Encounter HQ Encntr_alimichael(FIN) [id number] Date(s): 01/07/18 - 01/08/[address] [address]- [phone] Vital Signs No data available for this section Problem List Condition Effective Dates Status Health Status Informant Hypertension(Confirmed) Active Obesity(Confirmed) Active Allergies, Adverse Reactions, Alerts Substance Reaction Severity Status NKDA Active Medications valACYclovir 1 g oral tablet 1 gm=1 tab, PO, Daily, X 5 day, # 5 tab, 4 Refill(s), Pharmacy: [facility] Start Date: 01/07/18 Stop Date: 02/01/18 Status: Completed Results No data available for [...]
--- OUTSIDE RECORDS SUMMARY | 2018-10-29 09:06 | XMS REPORT | Summary of Care ---
:1970 Author Organization [address] [address]- Encounter [facility] [email or web address]_raj(FIN) [id number] Date(s): 12/18/17 - 12/18/[address] [address]- [phone] Discharge Disposition: Home or Self Care Attending Physician: Jakob Rincon DO Vital Signs Most recent to oldest [Reference Range]: 1 Height 185.42 cm (12/18/17 2:23 PM) Temperature Oral [96.4-99.1 DegF] 98.5 DegF (12/18/17 2:23 PM) Blood Pressure [90-140/60-90 mmHg] 140/94 mmHg (12/18/17 2:23 PM) Respiratory Rate [14-20 BRMIN] 18 BRMIN (12/18/17 2:23 PM) Peripheral Pulse Rate [60-100 bpm] 83 bpm (12/18/17 2:23 PM) Weight 116.364 kg (12/18/17 2:23 PM) Body Mass Index 33.85 m2 (12/18/17 2:23 PM) Problem List Condition Effective Dates Status [...]
--- OUTSIDE RECORDS SUMMARY | 2018-10-29 09:06 | XMS REPORT | Summary of Care ---
:[address] [facility] [address] [address]- Encounter HQ [email or web address](STEVEN) [id number] Date(s): 10/01/18 - 10/01/[address] [address]- [phone] Attending Physician: Jakob Rincon DO Vital Signs [...]
--- NOTE | 2018-10-29 09:37 | EDPHYS ---
Physician Documentation [facility] Name: Alessio Craig Age: 48 yrs Sex: Male : 1970 Arrival Date: 10/29/2018 Time: 09:05 Bed 20 Private MD: ED Physician Otf Pina HPI: 10/29 09:31 This 48 yrs old Male presents to ER via Ambulatory with complaints of Wrist snw Pain. 09:31 The patient or guardian reports injury, swelling, decreased sensation. The complaints snw affect the left wrist diffusely, right wrist diffusely. Context: resulted from handcuffs per law enforcement. Onset: The symptoms/episode began/occurred suddenly. Associated signs and symptoms: Pertinent positives: shoulders tense.. The patient has not experienced similar symptoms in the past. The patient has not recently seen a physician, supposed to be on HTN medications but doesn't take them because "laziness". Historical: - Allergies: 09:15 No Known Allergies; hj - Home Meds: 09:15 z-latrell [Active]; hj - PMHx: 09:15 Hypertension; hj - PSHx: 09:15 None; hj - Immunization history:: Adult Immunizations up to date. - Social history:: Smoking status: Patient uses tobacco products, Patient uses alcohol. - Ebola Screening: : Patient negative for fever greater than or equal to 101.5 degrees Fahrenheit, and additional compatible Ebola Virus Disease symptoms Patient denies exposure to infectious person Patient denies travel to an Ebola-affected area in the 21 days before illness onset. ROS: 09:31 Constitutional: Negative for fever, chills, and weight loss, Eyes: Negative for injury, snw pain, redness, and discharge, ENT: Negative for injury, pain, and discharge, Neck: Negative for injury, pain, and swelling, Cardiovascular: Negative for chest pain, palpitations, and edema, Respiratory: Negative for shortness of breath, cough, wheezing, and pleuritic chest pain, Abdomen/GI: Negative for abdominal pain, nausea, vomiting, diarrhea, and constipation, Back: Negative for injury and pain, : Negative for injury, bleeding, discharge, and swelling, Neuro: Negative for headache, weakness, numbness, tingling, and seizure. 09:31 MS/extremity: Positive for tenderness, of the feel like my shoulders are tense. 09:31 Skin: Positive for swelling, of the right hand and left hand, numbness to hands bilaterally, denies dropping items, just "not fully functional". Exam: 09:31 Constitutional: This is a well developed, well nourished patient who is awake, alert, snw and in no acute distress. Head/Face: Normocephalic, atraumatic. Eyes: Pupils equal round and reactive to light, extra-ocular motions intact. Lids and lashes normal. Conjunctiva and sclera are non-icteric and not injected. Cornea within normal limits. Periorbital areas with no swelling, redness, or edema. ENT: Nares patent. No nasal discharge, no septal abnormalities noted. Tympanic membranes are normal and external auditory canals are clear. Oropharynx with no redness, swelling, or masses, exudates, or evidence of obstruction, uvula midline. Mucous membranes moist. Neck: Trachea midline, no thyromegaly or masses palpated, and no cervical lymphadenopathy. Supple, full range of motion without nuchal rigidity, or vertebral point tenderness. No Meningismus. Chest/axilla: Normal chest wall appearance and motion. Nontender with no deformity. No lesions are appreciated. Cardiovascular: Regular rate and rhythm with a normal S1 and S2. No gallops, murmurs, or rubs. Normal PMI, no JVD. No pulse deficits. Respiratory: Lungs have equal breath sounds bilaterally, clear to auscultation and percussion. No rales, rhonchi or wheezes noted. No increased work of breathing, no retractions or nasal flaring. Abdomen/GI: Soft, non-tender, with normal bowel sounds. No distension or tympany. No guarding or rebound. No evidence of tenderness throughout. Back: No spinal tenderness. No costovertebral tenderness. Full range of motion. Skin: Warm, dry with normal turgor. Normal color with no rashes, no lesions, and no evidence of cellulitis. MS/ Extremity: Pulses equal, no cyanosis. Neurovascular intact. Full, normal range of motion. Neuro: Awake and alert, GCS 15, oriented to person, place, time, and situation. Cranial nerves II-XII grossly intact. Motor strength 5/5 in all extremities. Sensory grossly intact. Cerebellar exam normal. Normal gait. Psych: Awake, alert, with orientation to person, place and time. Behavior, mood, and affect are within normal limits. Vital Signs: 09:15 BP 163 / 96; Pulse 93; Resp 20; Temp 98.1; Pulse Ox 100% on R/A; Weight 122.47 kg; hj Height 6 ft. 2 in. (187.96 cm); Pain 7/10; 09:15 Body Mass Index 34.67 (122.47 kg, 187.96 cm) hj MDM: 09:09 Patient medically screened. snw 09:36 Data reviewed: vital signs, nurses notes. Data interpreted: Pulse oximetry: on room air snw is 100 %. Interpretation: normal. Counseling: I had a detailed discussion with the patient and/or guardian regarding: the historical points, exam findings, and any diagnostic results supporting the discharge/admit diagnosis, the presence of at least one elevated blood pressure reading (>120/80) during this emergency department visit, the need for outpatient follow up, to return to the emergency department if symptoms worsen or persist or if there are any questions or concerns that arise at home. Special discussion: I have referred the patient to see his PCP for further evaluation of high blood pressure. Based on the history and exam findings, there is no indication for further emergent testing or inpatient evaluation. I discussed with the patient/guardian the need to see the primary care provider for further evaluation of the symptoms. Administered Medications: No medications were administered Disposition: 12:32 Co-signature as Attending Physician, Otf Pina MD. rn Disposition: 10/29/18 09:36 Discharged to Home. Impression: Encounter for screening, unspecified. - Condition is Stable. - Medication Reconciliation Form, Thank You Letter, Antibiotic Education, Prescription Opioid Use form. - Follow up: Private Physician; When: 2 - 3 days; Reason: Recheck today's complaints, Continuance of care, Re-evaluation by your physician. Follow up: Emergency Department; When: As needed; Reason: Worsening of condition. Signatures: Roma Ruano, STRIP CATCHER-C STRIP CATCHER-Csnw Otf Pina MD MD rn Joaquin, Henry, RN RN hj Corrections: (The following items were deleted from the chart) 09:41 09:36 10/29/2018 09:36 Discharged to Home. Impression: Encounter for screening, hj unspecified. Condition is Stable. Forms are Medication Reconciliation Form, Thank You Letter, Antibiotic Education, Prescription Opioid Use. Follow up: Private Physician; When: 2 - 3 days; Reason: Recheck today's complaints, Continuance of care, Re-evaluation by your physician. Follow up: Emergency Department; When: As needed; Reason: Worsening of condition. snw
--- NOTE | 2018-10-29 09:37 | ER ---
Nurse's Notes [facility] Name: Alessio Craig Age: 48 yrs Sex: Male : 1970 Arrival Date: 10/29/2018 Time: 09:05 Bed 20 Private MD: Diagnosis: Encounter for screening, unspecified Presentation: 10/29 09:13 Presenting complaint: Patient states: i ws falsely arrested 2 days ago for DWI and the hj shoulder puncher hand cuffed me, now both are wrist are hurting and my hands are feeling numb;. Transition of care: patient was not received from another setting of care. Onset of symptoms was October 29, 2018. Risk Assessment: Do you want to hurt yourself or someone else? Patient reports no desire to harm self or others. Initial Sepsis Screen: Does the patient meet any 2 criteria? No. Patient's initial sepsis screen is negative. Does the patient have a suspected source of infection? No. Patient's initial sepsis screen is negative. Care prior to arrival: None. 09:13 Method Of Arrival: Ambulatory 09:13 Acuity: KENYATTA 4 hj Triage Assessment: 09:16 General: Appears in no apparent distress. uncomfortable, Behavior is calm, cooperative, hj appropriate for age. Pain: Complains of pain in R and L wrist. Historical: - Allergies: 09:15 No Known Allergies; hj - Home Meds: 09:15 z-latrell [Active]; hj - PMHx: 09:15 Hypertension; hj - PSHx: 09:15 None; hj - Immunization history:: Adult Immunizations up to date. - Social history:: Smoking status: Patient uses tobacco products, Patient uses alcohol. - Ebola Screening: : Patient negative for fever greater than or equal to 101.5 degrees Fahrenheit, and additional compatible Ebola Virus Disease symptoms Patient denies exposure to infectious person Patient denies travel to an Ebola-affected area in the 21 days before illness onset. Screenin:16 Abuse screen: Injuries were caused by another. Nutritional screening: No deficits hj noted. Tuberculosis screening: No symptoms or risk factors identified. Fall Risk None identified. Assessment: 09:20 General: Appears in no apparent distress. uncomfortable, Behavior is calm, cooperative, hj appropriate for age. Pain: Complains of pain in R and L:wrist. Neuro: Level of Consciousness is awake, alert, obeys commands, Oriented to person, place, time, situation, Appropriate for age. Cardiovascular: Capillary refill < 3 seconds Patient's skin is warm and dry. Respiratory: Airway is patent Respiratory effort is even, unlabored, Respiratory pattern is regular, symmetrical. GI: No signs and/or symptoms were reported involving the gastrointestinal system. : No signs and/or symptoms were reported regarding the genitourinary system. EENT: No signs and/or symptoms were reported regarding the EENT system. Derm: No signs and/or symptoms reported regarding the dermatologic system. Musculoskeletal: Reports pain in R and Lwrist. Vital Signs: 09:15 BP 163 / 96; Pulse 93; Resp 20; Temp 98.1; Pulse Ox 100% on R/A; Weight 122.47 kg; hj Height 6 ft. 2 in. (187.96 cm); Pain 7/10; 09:15 Body Mass Index 34.67 (122.47 kg, 187.96 cm) hj ED Course: 09:05 Patient arrived in ED. mr 09:08 [facility] snw 09:09 Otf Pina MD is Attending Physician. snw 09:13 Mateus Sidhu RN is Primary Nurse. hj 09:14 Triage completed. hj 09:16 Arm band placed on right wrist. hj 09:17 Patient has correct armband on for positive identification. Bed in low position. Call hj light in reach. Side rails up X 1. 09:40 No provider procedures requiring assistance completed. Patient did not have IV access hj during this emergency room visit. Administered Medications: No medications were administered Outcome: 09:36 Discharge ordered by . snw 09:40 Medical screen evaluation completed per provider. Patient declined treatment. hj 09:40 Condition: stable 09:40 Following a medical screening exam, the patient was provided information regarding alternative care sites and resources available per registration personnel. 09:41 Patient left the ED. Signatures: Roma Ruano FNP-C FNP-Shannon Breanna Medrano mr Mateus Sidhu RN RN kamar
== END 2018-10-29 09:41 | disposition home or self-care (01) ==
LOC: ER 09:02
DX: Z13.9 Encounter for screening, unspecified (principal); I10 Essential (primary) hypertension; Z72.0 Tobacco use
CPT/HCPCS: 99281